=== PATIENT | female | born 1985 | race African-American/Black ===

== ENCOUNTER 2018-07-02 14:18 | Inpatient (IN) ==
[2018-07-02] MEDS ORDERED: ONDANSETRON 4 MG/2 ML VIAL IV PRN ×2 (14:37→19:57)
[2018-07-02] MEDS ORDERED: DINOPROSTONE VAG GEL 10 MG SYRINGE VAG ONE (14:39)
[2018-07-02] MEDS ORDERED: LACTATED RINGERS 1,000 ML IV SCH (15:00)
[2018-07-02 15:07] LABS: Basophils % 0.2 % (0.0-0.8); Eosinophils # 0.2 10*3/uL (0.0-0.87); Hematocrit 32.3 VOL% (35.7-47.0); Hemoglobin 10.5 GM/DL (12.0-16.0); Immature Granulocytes % 0.6 %; Immature Granulocytes Absolute 0.06 #; Lymphocytes # 1.3 10*3/uL (1.4-4.0); Lymphocytes % 12.6 % (21.3-54.2); Mean Corpuscular HGB Conc 32.5 GM/DL (32-36); Mean Corpuscular Hemoglobin 26 PG (27-34); Mean Corpuscular Volume 79.8 FL (87-102); Mean Platelet Volume 11.5 FL (9.6-12.0); Monocytes # 0.6 10*3/uL (0.11-0.8); Monocytes % 6.3 % (1.7-12.7); Neutrophils # 7.8 10*3/uL (1.4-7.4); Neutrophils % 78.3 % (38.7-73.9); Platelet Count 286 T/CUMM (130-400); Red Blood Count 4.05 MC/CUMM (3.8-5.5); White Blood Count 9.9 T/CUMM (4-12)
[2018-07-02] MEDS ORDERED: OXYTOCIN/LR 20 UNIT/1,000 ML BAG IV SCH (15:30)
[2018-07-02] MEDS ORDERED: diphenhydrAMINE 50 MG/1 ML VIAL IV PRN ×2 (16:43)
[2018-07-02] MEDS ORDERED: CITRIC ACID/SODIUM CITRATE 30 ML UDCUP PO ONE (16:43)
[2018-07-02] MEDS ORDERED: NALOXONE 0.4 MG/ML VIAL IV PRN (16:43)
[2018-07-02] MEDS ORDERED: ONDANSETRON 4 MG/2 ML VIAL IV ONE (16:43)
[2018-07-02] MEDS ORDERED: PROMETHAZINE 25 MG/1 ML VIAL IM ONE (16:43)
[2018-07-02] MEDS ORDERED: hydrOXYzine HCL 25 MG/1 ML VIAL IM PRN (16:43)
[2018-07-02] MEDS ORDERED: ePHEDrine 50 MG/ML AMP IV PRN (16:43)
[2018-07-02] MEDS ORDERED: FAMOTIDINE 20 MG/2 ML VIAL IV ONE (16:43)
[2018-07-02] MEDS ORDERED: LACTATED RINGERS 1,000 ML IV ONE (16:43)
[2018-07-02] MEDS ORDERED: fentaNYL 2 MCG/ROPIV 0.2% EPID 100 ML EPIDURAL SCH (17:00)
[2018-07-02] MEDS ORDERED: LIDOCAINE 1% 50 ML VIAL ONE (19:10)
[2018-07-02] MEDS ORDERED: miSOPROStol 200 MCG TABLET ONE (19:10)
[2018-07-02] MEDS ORDERED: METHYLERGONOVINE 0.2 MG/1 ML AMP ONE (19:11)
[2018-07-02 19:19] LABS: Apearance,Urine CLEAR (Clear); Bilirubin,Urine Negative (Negative); Blood, Urine Negative (Negative); Glucose,Urine (UA) Negative (Negative); Ketones,Urine 80 mg/dL (Negative); Mucus,Urine Occasional /LPF (Occasional); Nitrite,Urine Negative (Negative); Protein,Urine Negative; RBC,Urine <1 /HPF (0-4); Squamous Epithelial Cell,Urine Occasional /HPF (0-10); Urine Color Yellow (Yellow); Urine Specific Gravity 1.016 (1.001-1.035); Urine Urobilinogen < 2.0 EU/DL (0.2-1.0); WBC,Urine 1 /HPF (0-6)
[2018-07-02] MEDS ORDERED: MEASLES/MUMPS/RUBELLA VACCINE 0.5 ML VIAL SUBCUT ONE (19:57)
[2018-07-02] MEDS ORDERED: BENZOCAINE 20%/MENTHOL 0.5% SPRAY 56 GM CAN TOP PRN (19:57)
[2018-07-02] MEDS ORDERED: WITCH HAZEL PADS 100/JAR TOP PRN (19:57)
[2018-07-02] MEDS ORDERED: BISACODYL 10 MG SUPP RECTAL PRN (19:57)
[2018-07-02] MEDS ORDERED: OXYTOCIN/LR 20 UNIT/1,000 ML BAG IV ONE (19:57)
[2018-07-02] MEDS ORDERED: RHO(D) IMMUNE GLOBULIN 300 MCG SYRINGE IM ONE (19:57)
[2018-07-02] MEDS ORDERED: LANOLIN 50% CREAM 0.3 OZ TUBE TOP PRN (19:57)
[2018-07-02] MEDS ORDERED: HYDROCORTISONE 2.5% RECTAL CREAM 30 GM TUBE TOP PRN (19:57)
[2018-07-02] MEDS ORDERED: ACETAMINOPHEN 325 MG TABLET PO PRN (19:57)
[2018-07-02] MEDS ORDERED: DIPH/TET/ACEL PERT BOOSTER VACCINE 0.5 ML VIAL IM ONE (19:57)
[2018-07-02] MEDS ORDERED: oxyCODONE/ACETAMINOPHEN 5-325 MG TABLET PO PRN ×2 (19:57)
[2018-07-02] MEDS: IBUPROFEN 800 MG TABLET PO PRN (22:35)
[2018-07-02] MEDS: DOCUSATE SODIUM 100 MG CAPSULE PO SCH (22:41)
[2018-07-03] MEDS ORDERED: ACETAMINOPHEN/CODEINE 300-30 MG TABLET PO PRN (00:26)
[2018-07-03] MEDS: ACETAMINOPHEN/CODEINE 300-30 MG TABLET PO PRN ×3 (00:44→18:42)
[2018-07-03] MEDS ORDERED: OXYTOCIN/LR 20 UNIT/1,000 ML BAG IV SCH (02:00)
[2018-07-03 06:06] LABS: Basophils % 0.4 % (0.0-0.8); Eosinophils # 0.2 10*3/uL (0.0-0.87); Eosinophils % 2.2 % (0.00-10.9); Hematocrit 30.2 VOL% (35.7-47.0); Hemoglobin 9.6 GM/DL (12.0-16.0); Immature Granulocytes % 0.5 %; Immature Granulocytes Absolute 0.05 #; Lymphocytes # 1.7 10*3/uL (1.4-4.0); Lymphocytes % 16.1 % (21.3-54.2); Mean Corpuscular HGB Conc 31.8 GM/DL (32-36); Mean Corpuscular Hemoglobin 26 PG (27-34); Mean Corpuscular Volume 80.5 FL (87-102); Monocytes # 0.8 10*3/uL (0.11-0.8); Monocytes % 7.6 % (1.7-12.7); Neutrophils # 7.9 10*3/uL (1.4-7.4); Neutrophils % 73.2 % (38.7-73.9); Platelet Count 227 T/CUMM (130-400); Red Blood Count 3.75 MC/CUMM (3.8-5.5); Red Cell Distribution Width 17.1 % (9.3-17.3); White Blood Count 10.8 T/CUMM (4-12)
[2018-07-03] MEDS: IBUPROFEN 800 MG TABLET PO PRN ×2 (06:11→16:10)
[2018-07-03] MEDS: FERROUS SULFATE 325 MG TABLET PO SCH ×2 (08:59→20:39)
[2018-07-03] MEDS: DOCUSATE SODIUM 100 MG CAPSULE PO SCH ×2 (08:59→20:38)
[2018-07-04] MEDS: ACETAMINOPHEN/CODEINE 300-30 MG TABLET PO PRN (03:18)
[2018-07-04 07:16] VITALS: BP 132/82
[2018-07-04] MEDS: DOCUSATE SODIUM 100 MG CAPSULE PO SCH (09:25)
[2018-07-04] MEDS: FERROUS SULFATE 325 MG TABLET PO SCH (09:25)
[2018-07-04] MEDS ORDERED: INFLUENZA VIRUS VACCINE 0.5 ML SYRINGE IM ONE (10:27)
== END 2018-07-04 13:15 | disposition home or self-care (01) | DRG 807 ==
LOC: N.LDOUT 14:18 → N.LD 14:20 → N.OB 22:20
PROVIDERS: ADMIT Obstetrics & Gynecology; ATTEND Obstetrics & Gynecology